=== PATIENT | female | born 1990 | race Caucasian/White ===

== ENCOUNTER 2016-08-31 21:42 | Outpatient (CLI) | payer OTHER ==
[~2016-08-31] VITALS: Ht 157.5 cm; Wt 71.8 kg
[~2016-08-31 21:42] MED LIST: KEPPRA 500MG500 MG PO; MOTRIN 600600 MG/TAB PO; PERCOCET 325 MG1 TA2 PO; PRENATAL1 TA1 PO
[2016-08-31 22:17] VITALS: BP 117/66; PULSE 108; TEMP 98.7
== END 2016-08-31 23:35 | disposition home or self-care (01) ==
LOC: LDRO 21:42
DX: Z34.83 Encounter for supervision of other normal pregnancy, third trimester (principal); Z3A.33 33 weeks gestation of pregnancy

== ENCOUNTER 2016-10-16 01:14 | Inpatient (IN) | payer OTHER ==
[2016-10-16] VITALS (27 sets, daily range): BP systolic 100–150; BP diastolic 6–102; PULSE 75–130; TEMP 98–98.4
[~2016-10-16] VITALS: Ht 160 cm; Wt 75.9 kg
[2016-10-16] MEDS ORDERED: PAMELOR 10MG10 MG PO (01:40)
[2016-10-16 02:33] LABS: BASO % 0.3 % (0.0-2.0); EOS # 0.1 (0.0-0.7); GRAN # 7.5 (1.4-6.5); GRAN % 55.9 % (42.2-75.2); HEMATOCRIT 40.1 % (37.0-47.0); HEMOGLOBIN 13.9 g/dl (12.5-16.0); LYMPH # 4.7 (1.2-3.4); LYMPH % 34.8 % (20.0-51.0); MEAN CELL VOLUME 92 fl (80.0-100.0); MEAN CORPUSCULAR HEMOGLOBIN 32 pg (27.0-31.0); MEAN CORPUSCULAR HGB CONC 35 g/dl (33.0-37.0); MEAN PLATELET VOLUME 10.8 fl (7.4-10.4); MONO % 7.5 % (1.7-9.3); PLATELET COUNT 160 K/mm3 (130-400); RED BLOOD COUNT 4.36 M/mm3 (4.10-5.30); REDCELL DISTRIBUTION WIDTH-CV 14.8 % (11.5-14.5); WHITE BLOOD COUNT 13.4 K/mm3 (4.8-10.8)
[2016-10-17 01:45] VITALS: BP 117/65; PULSE 90; TEMP 98.2
[2016-10-17 05:30] VITALS: BP 121/60; PULSE 90; TEMP 98.3
[2016-10-17 07:39] VITALS: BP 113/56; PULSE 87; TEMP 98
[2016-10-17] MEDS ORDERED: IBU600 MG PO (09:34)
== END 2016-10-17 12:15 | disposition home or self-care (01) | DRG 775 ==
LOC: LDRO 01:14 → LDR 02:33 → OB 02:33 → LDRO 08:45 → OB 10-17 12:15
PROVIDERS: Obstetrics & Gynecology
PROC: 10E0XZZ Delivery of Products of Conception, External Approach (ICD-10-PCS; principal; 2016-10-16)
DX: O48.0 Post-term pregnancy (principal); O99.354 Diseases of the nervous system complicating childbirth; G40.909 Epilepsy, unspecified, not intractable, without status epilepticus; Z3A.40 40 weeks gestation of pregnancy; Z37.0 Single live birth
CPT/HCPCS: J2210; J2590; J2795; J7120